=== PATIENT | female | born 1975 | race Caucasian/White ===

== ENCOUNTER 2020-11-19 13:39 | Emergency (ER) | payer SELFPAY | END 2020-11-19 15:21 | disposition admitted as inpatient to this hospital (09) | LOC: CSHERS 13:39 | DX: L03.311 Cellulitis of abdominal wall (principal); L03.313 Cellulitis of chest wall | CPT/HCPCS: 99282 ==

== ENCOUNTER 2022-12-22 09:05 | Day surgery (SDC) | payer OTHER ==
[2022-12-21 08:50] VITALS: BMI 38.4
[~2022-12-22 09:05] MED LIST: Lidocaine 2% MPF 10 ML AMP (For Epidural Use) ONE; PROPOFOL 40 ML ONE
== END 2022-12-22 12:03 | disposition home or self-care (01) ==
LOC: CSHSDC 09:05
PROVIDERS: ATTEND Internal Medicine Gastroenterology
PROC: 0DBN8ZX Excision of Sigmoid Colon, Via Natural or Artificial Opening Endoscopic, Diagnostic (ICD-10-PCS; principal; 2022-12-22)
DX: Z12.11 Encounter for screening for malignant neoplasm of colon (principal); K57.30 Diverticulosis of large intestine without perforation or abscess without bleeding; K63.5 Polyp of colon; K64.9 Unspecified hemorrhoids; E66.9 Obesity, unspecified; E11.9 Type 2 diabetes mellitus without complications; Z68.38 Body mass index [BMI] 38.0-38.9, adult
CPT/HCPCS: 88305; J2704

== ENCOUNTER 2024-03-04 13:24 | Emergency (ER) | payer OTHER, SELFPAY | END 2024-03-04 14:08 | disposition home or self-care (01) | LOC: CSHERS 13:24 | DX: S63.502A Unspecified sprain of left wrist, initial encounter (principal); X50.1XXA Overexertion from prolonged static or awkward postures, initial encounter ==